=== PATIENT | male | born 1975 | race Caucasian/White ===

== ENCOUNTER 2018-04-24 23:57 | Emergency (ER) | payer OTHER, MEDICAID, SELFPAY ==
[2018-04-25 00:02] VITALS: BP 157/96; PULSE 94; RESP 16; TEMP 36.5; O2SAT 98; BMI 33.7
--- NOTE | 2018-04-25 00:50 | DI.RAD.S_ITS ---
PROCEDURE: XR CHEST 2V INDICATIONS: Shortness of breath, carbon monoxide exposure TECHNIQUE: 2 views of the chest were acquired. COMPARISON: [facility], , CHEST 1 VIEW, 09/27/2016, 2:19. FINDINGS: Surgical changes and devices: None. Lungs and pleura: No pleural effusions or pneumothorax. Lungs are clear. Mediastinum: Mediastinal contours are normal. Heart size is normal. Bones and chest wall: No suspicious bony abnormalities. Soft tissues appear unremarkable. IMPRESSION: No acute cardiopulmonary disease. Dictated by: Celestina Rae M.D. on 04/25/2018 at 8:45 Approved by: Celestina Rae M.D. on 04/25/2018 at 8:46
== END 2018-04-25 01:36 | disposition left against medical advice (07) ==
LOC: ED 04-25
PROVIDERS: Emergency Provider Emergency Medicine; PCP Physician Assistant
DX: Z77.29 Contact with and (suspected) exposure to other hazardous substances (principal)
CPT/HCPCS: 71046; 99281; 99282

== ENCOUNTER → 2018-05-27 08:55 | Outpatient (CLI) | payer OTHER, MEDICAID, SELFPAY ==
[2018-05-27 10:46] LABS: Alanine Aminotransferase 61 IU/L (21-72); Albumin 4.7 g/dL (3.5-5.0); Albumin Globulin Ratio 1.6 (1.0-2.8); Alkaline Phosphatase 71 U/L (38-126); Aspartate Aminotransferase 46 IU/L (17-59); Bilirubin Total 0.9 mg/dL (0.2-1.3); Blood Urea Nitrogen 16 mg/dL (9-20); Calcium 9.2 mg/dL (8.4-10.2); Carbon Dioxide 27 mmol/L (22-32); Chloride 104 mmol/L (98-107); Cholesterol 152 mg/dL (140-199); Estimated Glomerular Filt Rate > 60.0 mL/min (>60); Globulin 2.9 g/dL (1.7-4.1); Glucose 86 mg/dL (70-100); HDL Cholesterol 45 mg/dL (40-60); HEMOLYSIS < 15 (0-50); LDL Cholesterol Calculated 97 mg/dL (<100); Potassium 3.6 mmol/L (3.4-5.1); Sodium 146 mmol/L (137-145); Total Protein 7.6 g/dL (6.3-8.2); Triglycerides 49 mg/dL (35-150)
[2018-05-27 11:10] LABS: Thyroid Stimulating Hormone 1.38 uIU/mL (0.47-4.68)
== END ==
PROVIDERS: PCP Physician Assistant; Visit Provider Physician Assistant
DX: I10 Essential (primary) hypertension (principal)
CPT/HCPCS: 36415; 80053; 80061; 84443

== ENCOUNTER 2018-07-17 07:22 | Day surgery (SDC) | payer OTHER, MEDICAID, SELFPAY ==
[2018-07-17] VITALS (7 sets, daily range): BP systolic 114–145; BP diastolic 69–95; PULSE 67–75; RESP 12–16; TEMP 36.6–36.7; O2SAT 94–98; BMI 33.4
--- NOTE | 2018-07-17 | PATH_ITS ---
[facility] Accession Number: [id number] . 01 Material submitted: . RANDOM BIOPSIES COLON . 02 Diagnosis: Random Colon, Biopsies: Colonic mucosa with no diagnostic abnormality. Negative for active or microscopic colitis. Negative for granulomata, dysplasia or malignancy. V/07/18/2018 . 02 Electronically signed: . Ignacio Fournier MD, PhD, Pathologist NPI- [id number] . 01 Gross description: . Received in one formalin-filled container labeled with the patient's name and labeled random biopsy of colon, are multiple 0.1-0.3 cm portions of tissue, which are filtered, wrapped, and entirely submitted in one cassette. ([id number]) /FRR . 02 Pathologist provided ICD-10: R19.4 . 02 CPT . 026938 Specimen Comment: A duplicate report has been generated due to demographic updates. Performed at: 01 [facility] [address] [place] [address], [place], [place] [id number] MD Chapin Palafox MD Phone: [phone] Performed at: 02 [facility] [address] [place], [place] [id number] MD Merlene Gunn MD Phone: [phone]
--- NOTE | 2018-07-17 07:44 | PM.PREOP ---
Pre-operative Note Interval Note Pre-op Check: Yes History & Physical Reviewed by Physician Changes: No
[2018-07-17] MEDS: LACTATED RINGERS 1,000 ML 21 ML IV (07:49)
--- NOTE | 2018-07-17 08:25 | PM.OP.1 ---
Operative Date/Time/Diagnoses Date of procedure: 07/17/18 Time of procedure: 08:25 Pre-op diagnosis: Abdominal pain Change in bowel habits Family history of ulcerative colitis and multiple polyps as well as colon cancer Post-op diagnosis: same Procedure & Clinicians Procedure: Colonoscopy to the cecum with multiple biopsies Same procedure as scheduled: Yes Indications: No prior colonoscopy Surgeon: Malena Oscar Anesthesia Type: General (Dr. Medrano) Operative Notes Findings: 1. Adequate prep 2. No polyps or mass lesions 3. No AV malformations 4. Minimal diverticulosis limited the sigmoid region 5. Essentially normal appearing mucosa 6. Grade 1 internal hemorrhoids with mild excoriation Closure Type: not applicable Specimen(s): other (1. Random mucosal biopsies throughout the colon, 2. Stool for GI panel) Estimated Blood Loss (mL): 1 Procedure in detail: After obtaining informed consent, the patient was brought to the GI suite and placed in the left lateral decubitus position on the examination table. After placement of appropriate monitors, the patient was given incremental doses of Versed and Fentanyl until an appropriate level of sedation was achieved. A time out was held per SCOAP protocol. A digital rectal examination was performed and did not reveal any masses or obstructing lesions. The colonoscope was gently passed into the patient's anus and the entire colon navigated to the level of the cecum with minimal difficulty. Once in the cecum, the scope was withdrawn being sure to go before and beyond all mucosal folds and prominences and get an excellent examination. The findings are noted above. At the level of the rectal vault, the scope was retroflexed and the internal anal canal was examined. The scope was straightened and air aspirated from the colon. The instrument was removed from the patient's body and the procedure was concluded. The patient was allowed to awaken from sedation without difficulty and taken to the post-anesthesia care unit in good condition. Total withdrawal time was 14 min and 11 sec Complications: none Condition: stable Disposition: PACU Plan for aftercare: 1. Discharge to home 2. We will contact you with pathology results and any additional recommendations. 3. Plan for next colonoscopy at age 51
[2018-07-17 11:06] LABS: Campylobacter Not Detected (Not Detect); Clostridium difficile toxin AB Detected (Not Detect); Enteroaggregative E.coli Not Detected (Not Detect); Enteropathogenic E.coli Not Detected (Not Detect); Enterotoxigenic E.coli It/st Not Detected (Not Detect); Plesiomonsa shigelloides Not Detected (Not Detect); Salmonella Not Detected (Not Detect); Shiga-like toxin-prod E.coli Not Detected (Not Detect); Vibrio Not Detected (Not Detect); Vibrio cholerae Not Detected (Not Detect); Yersinia enterocolitica Not Detected (Not Detect)
[2018-07-17 11:07] LABS: Adenovirus F 40/41 Not Detected (Not Detect); Astrovirus Not Detected (Not Detect); Cryptosporidium Not Detected (Not Detect); Cyclospora cayetanensis Not Detected (Not Detect); Entamoeba histolytica Not Detected (Not Detect); Giardia lamblia Not Detected (Not Detect); Norovirus GI/GII Not Detected (Not Detect); Rotavirus A Not Detected (Not Detect); Sapovirus Not Detected (Not Detect); Shigella/Enteroinvasive E.coli Not Detected (Not Detect)
== END 2018-07-17 09:04 | disposition home or self-care (01) ==
PROVIDERS: PCP Physician Assistant; Visit Provider Surgery
PROC: 0DJD8ZZ Inspection of Lower Intestinal Tract, Via Natural or Artificial Opening Endoscopic (ICD-10-PCS; CPT 45378; principal; 2018-07-17 07:45)
DX: R10.9 Unspecified abdominal pain (principal); R19.4 Change in bowel habit; K57.30 Diverticulosis of large intestine without perforation or abscess without bleeding; K64.0 First degree hemorrhoids; F17.210 Nicotine dependence, cigarettes, uncomplicated; Z80.0 Family history of malignant neoplasm of digestive organs; F41.9 Anxiety disorder, unspecified; J45.909 Unspecified asthma, uncomplicated; I10 Essential (primary) hypertension
CPT/HCPCS: 45380; 87507; 99152; J2704

== ENCOUNTER 2018-08-28 14:58 | Emergency (ER) | payer OTHER, MEDICAID, SELFPAY ==
[2018-08-28 15:18] VITALS: BP 139/88; PULSE 80; RESP 20; TEMP 36.5; O2SAT 99; BMI 33.5
--- NOTE | 2018-08-28 18:26 | PC.NURSE ---
Not in wr when called
--- NOTE | 2018-08-28 19:06 | PC.NURSE ---
Not in WR when called
== END 2018-08-28 19:07 | disposition left against medical advice (07) ==
LOC: ED 15:00
PROVIDERS: PCP Physician Assistant
DX: L02.412 Cutaneous abscess of left axilla (principal)
CPT/HCPCS: 99281; 99282

== ENCOUNTER → 2018-08-30 12:09 | Outpatient (CLI) | payer OTHER, MEDICAID, SELFPAY ==
--- NOTE | 2018-08-30 | DI.US.S_ITS ---
PROCEDURE: US CHEST COMPARISON: None. INDICATIONS: LEFT UNDERARM LUMP; RECENT SQUAMOUS CELL CARCINOMA OF LIP FINDINGS: The study is limited to the chest wall/axilla area in this male patient with a palpable lump identified at the axillary area of the left chest, with history of recent squamous cell carcinoma of the lip. The mass identified measures up to 3.6 x 1.7 x 4.9 cm, is hypoechoic and solid with internal vascularity, with the appearance suggestive of malignancy as the likely cause. Reactive adenopathy is a potential alternative etiology. IMPRESSION: Masslike structure left axilla in a patient with recent diagnosis of head and neck squamous cell carcinoma, worrisome for representing evidence of edgard metastatic disease. Contrast enhanced chest CT scanning is recommended and given the appearance and likelihood of neoplasm staging CT scanning through the abdomen and pelvis at the same time of scanning may be warranted. Dictated by: Charles Escobar M.D. on 08/30/2018 at 14:18 Approved by: Charles Escobar M.D. on 08/30/2018 at 14:20
[2018-08-30 13:52] LABS: Hematocrit 45.8 % (41-53); Mean Corpuscular HGB Conc 34.9 % (30-36); Mean Corpuscular Volume 85.8 fL (80-100); Platelet Count 204 X10^3/uL (150-400); Red Blood Cell Count 5.34 X10^6/uL (4.5-5.9); Red Cell Distribution Width 12.7 % (11.6-14.8); White Blood Cell Count 6.3 X10^3/uL (4.5-11.0)
[2018-08-30 14:11] LABS: Morphology Comment Normal Morphology; Neutrophils Absolute Manual 2457 /uL (3000-5900); Total Cells Counted 100
[2018-08-30 14:46] LABS: Alanine Aminotransferase 52 IU/L (21-72); Albumin 4.4 g/dL (3.5-5.0); Albumin Globulin Ratio 1.3 (1.0-2.8); Alkaline Phosphatase 79 U/L (38-126); Aspartate Aminotransferase 40 IU/L (17-59); BUN Creatinine Ratio 11.7 (6-22); Bilirubin Total 0.4 mg/dL (0.2-1.3); Blood Urea Nitrogen 14 mg/dL (9-20); Calcium 9.8 mg/dL (8.4-10.2); Carbon Dioxide 30 mmol/L (22-32); Chloride 103 mmol/L (98-107); Estimated Glomerular Filt Rate > 60.0 mL/min (>60); Globulin 3.3 g/dL (1.7-4.1); Glucose 81 mg/dL (70-100); HEMOLYSIS < 15 (0-50); Sodium 146 mmol/L (137-145); Total Protein 7.7 g/dL (6.3-8.2)
== END ==
PROVIDERS: PCP Physician Assistant; Visit Provider Physician Assistant
DX: R59.0 Localized enlarged lymph nodes (principal)
CPT/HCPCS: 36415; 76604; 80053; 85025

== ENCOUNTER → 2018-09-09 11:24 | Outpatient (CLI) | payer OTHER, MEDICAID, SELFPAY ==
--- NOTE | 2018-09-09 11:30 | DI.CT.S_ITS ---
PROCEDURE: CT CHEST W CON INDICATIONS: Mass left axilla;hx of SCC of lip TECHNIQUE: After the administration of intravenous contrast, 5 mm thick sections acquired from the pulmonary apices to the posterior costophrenic angles. 7 mm thick coronal and sagittal MIP reformats were acquired. For radiation dose reduction, the following was used: automated exposure control, adjustment of mA and/or kV according to patient size. COMPARISON: [facility], , CHEST, 08/30/2018, 12:36. FINDINGS: Image quality: Excellent. Lungs and pleura: No acute air space opacities. No pleural effusions or pneumothorax. Central and peripheral airways are patent and normal in caliber. Mediastinum: Heart size is normal. No pericardial effusion. Mildly prominent, measures up to 9 x 8 16 mm in size in the precarinal space. No gross hilar lymphadenopathy. lymph nodes are seen scattered in mediastinum Thoracic aorta and central pulmonary arteries are normal in size. Esophagus is normal in caliber. There is a small hiatal hernia. Bones and chest wall: No suspicious bony lesions. No vertebral body compression fractures. Thyroid gland is within normal limits. Prominent left axillary lymph nodes are seen with soft tissue density mass measures 4.1 x 2.3 x 4.2 cm in size. This was also noted on previous ultrasound examination. No right axillary adenopathy. No supraclavicular lymphadenopathy. Abdomen: Visualized upper abdominal solid organs appear normal. Upper abdominal bowel loops are normal in caliber. IMPRESSION: 1. Prominent lymph nodes and a 4.1 x 2.3 x 4.2 cm soft tissue density lesion in left axilla which could represent malignant mass versus metastatic lymphadenopathy given patient's history of head and neck cancer. 2. Borderline enlarged mediastinal lymph nodes as above. No hilar adenopathy. 3. Bilateral lungs are clear. Airway is patent. Dictated by: Terry Ureña M.D. on 09/09/2018 at 13:40 Approved by: Terry Ureña M.D. on 09/09/2018 at 13:50
== END ==
PROVIDERS: Family Provider Surgery; PCP Physician Assistant; Visit Provider Physician Assistant
DX: R22.32 Localized swelling, mass and lump, left upper limb (principal); R59.0 Localized enlarged lymph nodes; Z85.819 Personal history of malignant neoplasm of unspecified site of lip, oral cavity, and pharynx
CPT/HCPCS: 71260; Q9967

== ENCOUNTER → 2018-09-10 11:35 | Outpatient (CLI) | payer OTHER, MEDICAID, SELFPAY ==
--- NOTE | 2018-09-10 11:58 | DI.CT.S_ITS ---
PROCEDURE: CT ABDOMEN PELVIS W CON INDICATIONS: Axillary adenopathy with history of head and neck cancer TECHNIQUE: After the administration of oral and intravenous contrast, 5 mm thick sections acquired from the diaphragms to the symphysis. 5 mm thick coronal and sagittal reformats were performed. For radiation dose reduction, the following was used: automated exposure control, adjustment of mA and/or kV according to patient size. COMPARISON: [facility], CT, CT CHEST W CON, 09/09/2018, 11:22. FINDINGS: Image quality: Excellent. ABDOMEN: Lung bases: There is mild dependent atelectasis. Heart size is at the upper limits of normal. Solid organs: There is mild hypoattenuation of the liver consistent with fatty infiltration with relative sparing along the gallbladder fossa. The gallbladder appears within normal limits without calcified gallstones. Biliary system is non-dilated. Pancreas enhances normally. Spleen is enlarged, measuring up to 16 cm. No adrenal nodules. Kidneys are normal in size and enhancement, without hydronephrosis. Peritoneum and bowel: Stomach, small bowel, and colon loops are normal in caliber and wall thickness. The appendix is normal in appearance. There is colonic diverticulosis without acute diverticulitis. No free fluid or air. Nodes and vessels: There are multiple mildly enlarged mesenteric lymph nodes measuring up to 1.1 cm in short axis with mild hazy fat stranding of the mesentery. No associated calcification. Aorta and inferior vena cava are normal in caliber. Miscellaneous: No ventral hernias. PELVIS: Genitourinary: Bladder wall thickness is normal. There is heterogeneous enlargement of the prostate. Areas of ill-defined hypodensity in the peripheral zone bilaterally may be associated with blood products from prior prostate biopsy. Miscellaneous: No inguinal hernias or adenopathy. Bones: No suspicious bony lesions. No vertebral body compression fractures. IMPRESSION: 1. Mildly enlarged mesenteric lymph nodes with mild hazy fat stranding in the mesentery. The findings are nonspecific and may reflect sequelae of treated lymphoma versus an inflammatory process such as sclerosing mesenteritis. 2. Nonspecific splenomegaly. 3. Mild hepatic steatosis. 4. Heterogeneous enlargement of the prostate with ill-defined areas of hyperdensity in the peripheral zone which may reflect blood product from prior prostate biopsy. Recommend correlation with clinical history. Dictated by: Chapin Sneed M.D. on 09/10/2018 at 16:58 Approved by: Chapin Sneed M.D. on 09/10/2018 at 17:03
== END ==
PROVIDERS: Family Provider Surgery; PCP Physician Assistant; Visit Provider Surgery
DX: R59.0 Localized enlarged lymph nodes (principal); R16.1 Splenomegaly, not elsewhere classified; K76.0 Fatty (change of) liver, not elsewhere classified; N40.0 Benign prostatic hyperplasia without lower urinary tract symptoms; Z85.89 Personal history of malignant neoplasm of other organs and systems
CPT/HCPCS: 74177; Q9967

== ENCOUNTER 2018-09-18 10:47 | Day surgery (SDC) | payer OTHER, MEDICAID, SELFPAY ==
[2018-09-16 12:31] VITALS: BMI 33.7
[2018-09-18] VITALS (17 sets, daily range): BP systolic 115–147; BP diastolic 77–103; PULSE 50–84; RESP 10–16; TEMP 36.1–36.8; O2SAT 94–99; BMI 33.7
--- NOTE | 2018-09-18 | PATH_ITS ---
Note [facility] Accession Number: [id number] TESTS RESULT FLAG UNITS REF RANGE LAB Flow Interpretation 01 Comment Left axillary lymph node, biopsy: No abnormal B-cell or T-cell population identified (see Comments) 01 Comment No evidence of B-cell or T-cell non-Hodgkin lymphoma is identified by flow cytometry. A subset of the B-cells expresses slightly higher-level CD20 and FMC7 than the rest of the mature B-cells, with coexpression of low CD10, high CD38, and polytypic surface light chains. This low-level CD10+ B-cell population is favored to represent reactive follicle center B-cells; however, correlation with the concurrent paraffin-embedded tissue will be required. Note that Hodgkin lymphoma, certain non-Hodgkin lymphomas (e.g. T-cell/histiocyte-rich large B-cell lymphoma), and a non-hematopoietic neoplasm would not be detected by these flow cytometry studies. Therefore, correlation with the concurrent left axillary lymph node tissue morphology is required for definitive diagnosis ([id number]). - Flow cytometric analysis indicates that the viable leukocytes are comprised of 98% lymphocytes and 0.8% granulocytes. The lymphocytes include 50% B-cells, 48% T-cells, and 0.6% NK-cells. The mature B-cells have a normal kappa:lambda ratio of 1.6 overall; and the subset of B-cells with slightly higher-level CD20 and low-level CD10 expression has a normal kappa:lambda ratio of 2.0. The T-cells have a normal CD4:CD8 ratio of 3.9. 01 Comment [id number] 01 Comment Left axillary lymph node 01 Comment Cell Yield: 2,222 x 10E3/mm3 Analysis of the viable cells reveals: 98% lymphocytes, 49% B-cells, 47% T-cells, 0.6% NK-cells, and 0.8% granulocytes 64% 01 01 Comment Nguyen Hoyt MD - [facility] [place] [address] [facility]-[id number] Comment: 01 Comment The following antigens were evaluated: CD2, CD3, CD4, CD5, CD7, CD8, CD10, CD11b, CD11c, CD13, CD14, CD15, CD16, CD19, CD20, CD22, CD23, CD33, CD34, CD38, CD45, CD56, CD57, CD64, CD103, CD117, FMC-7, HLA-DR, [place], Lambda. This laboratory is licensed under the Clinical Laboratory Improvement Amendments of 1988 (CLIA) as qualified to perform high complexity testing. Each antibody in this assay was utilized to assess for potential abnormalities of studied cell populations or to characterize identified abnormalities. . This test was developed and its performance characteristics determined by [employer]. It has not been cleared or approved by the U.S. Food and Drug Administration. . The FDA has determined that such clearance or approval is not necessary. This test is used for clinical purposes. It should not be regarded as investigational or for research. FLAG LEGEND: L-Low Normal,H-High Normal,LL-Alert Low,HH-Alert High <-Panic Low,>-Panic High,A-Abnormal,AA-Critical Abnormal Performed at: 01 [facility]$ [facility] [address] [address] Julissa Davenport MD, Specimen Comment: A duplicate report has been generated due to demographic updates. Performed at: [address] [address] [id number] MD Julissa Davenport MD Phone: [phone]
[2018-09-18] MEDS: LACTATED RINGERS 1,000 ML 42 ML IV (11:44)
--- NOTE | 2018-09-18 11:54 | PM.PREOP ---
Pre-operative Note Interval Note History & Physical reviewed/Exam performed by Physician: Yes Changes to H&P: No
[2018-09-18] MEDS: CEFAZOLIN 2 GM/100 ML FROZ.PIGGY IV (12:22)
--- NOTE | 2018-09-18 12:36 | SUR.OPER ---
Supine on padded OR bed, head on pillow, arms secured on padded arm boards at <90 degrees abduction, legs uncrossed, safety belt at thigh, tape over blanket over lower legs.
[2018-09-18] MEDS: LIDOCAINE 1% W/EPI INJ 20 ML INJ (12:47)
[2018-09-18] MEDS: BUPIVACAINE 0.5% (PF) VIAL 30 ML INJ (12:48)
--- NOTE | 2018-09-18 13:06 | PM.OP.1 ---
Operative Date/Time/Diagnoses Date of procedure: 09/18/18 Time of procedure: 13:06 Pre-op diagnosis: Left axillary mass Post-op diagnosis: same Procedure & Clinicians Procedure: Excision of enlarged left axillary lymph node Same procedure as scheduled: Yes Indications: Grossly abnormal left axillary lymph node Surgeon: Malena Oscar Click Yes if Unassisted: Yes Anesthesia Type: General (Dr. Medrano) and Local Operative Notes Findings: 6 x 5 cm mass consistent with an abnormal lymph node. It is riojas in color with black specks spread throughout Closure Type: primary Specimen(s): other (Lymph node divided into 4 sections and submitted for lymph node protocol) Estimated Blood Loss (mL): 5 Procedure in detail: After obtaining informed consent, the patient brought to the operating room and placed in the supine position on the operating table. Following successful induction of general endotracheal anesthesia, appropriate padding of all bony prominences, and placement of appropriate monitors, the left axilla was prepped and draped in the standard surgical fashion. A time-out was held per SCOAP protocol. Following infiltration with local anesthetic to create a field block, an incision was created directly over the palpable node in the left axilla. The node was then carefully liberated from surrounding structures. All afferent and efferent vasculature and lymphatics were addressed with hemoclips prior to division. Once the node was freed, it was divided into 4 segments. Two were sent for flow cytometry, 1 placed in formalin, and the other 1 for culture. Touch preps were also performed. The wound was then checked for hemostasis. It was irrigated with warm saline solution and additional local anesthetic applied. It was then closed in 2 layers with Vicryl and Monocryl suture. All sponge, needle, and instrument counts were correct at the conclusion of the case. The patient was allowed to wake from anesthesia without difficulty and taken to the postanesthesia care unit in good condition. Complications: none Condition: stable Disposition: PACU Plan for aftercare: 1. Discharge to home 2. Follow up with me in 2 weeks
[2018-09-18] MEDS: fentaNYL 100 MCG/2 ML INJ 25 MCG IV ×3 (13:29→13:40)
[2018-09-18] MEDS: LORazepam 2 MG/ML SYRINGE 0.5 MG IV (14:16)
--- NOTE | 2018-09-18 14:22 | SUR.PHASEI ---
PT BECAME VERY DIAPHORETIC AND C/O BEING SUPER HOT, BECAME ANXIOUS AND NAUSEATED, COOL CLOTH TO FOREHEAD, COMFORT MEASURES AND REASSURANCE GIVEN, BLOOD SUGAR CHECK = 86, MEDICATED FOR ANXIOUS FEELING.
--- NOTE | 2018-09-18 14:27 | SUR.PHASEI ---
PT APPEARS MORE COMFORTABLE, IS SLEEPING QUIETLY.
[2018-09-18] MEDS: OXYCODONE/ACETAMINOPHEN 5/325 TABLET 1 TAB PO (14:53)
== END 2018-09-18 15:33 | disposition home or self-care (01) ==
PROVIDERS: Family Provider Surgery; PCP Physician Assistant; Visit Provider Surgery
PROC: (CPT 38500; principal; 2018-09-18 11:45)
DX: R22.2 Localized swelling, mass and lump, trunk (principal); Z85.828 Personal history of other malignant neoplasm of skin; F41.9 Anxiety disorder, unspecified; F33.41 Major depressive disorder, recurrent, in partial remission; I10 Essential (primary) hypertension; F43.10 Post-traumatic stress disorder, unspecified; F17.210 Nicotine dependence, cigarettes, uncomplicated
CPT/HCPCS: 38500; 88305; 88307; 88312; 88341; 88342; 88365; J0690; J2060; J2250; J2405; J2704; J3010

== ENCOUNTER → 2018-10-08 12:07 | Outpatient (CLI) | payer OTHER, MEDICAID, SELFPAY ==
[2018-10-08 15:55] LABS: Microalbumi Creatinin Ratio Ur 4.8 ug/mg CR (<30); Microalbumin Urine Random < 0.6 mg/dL (0-1.6)
== END ==
PROVIDERS: Family Provider Surgery; PCP Physician Assistant; Visit Provider Physician Assistant
DX: B58.9 Toxoplasmosis, unspecified (principal); R53.83 Other fatigue; R59.0 Localized enlarged lymph nodes; R61 Generalized hyperhidrosis; I10 Essential (primary) hypertension
CPT/HCPCS: 36415; 82043; 82570; 86778

== ENCOUNTER 2019-06-16 12:08 | Day surgery (SDC) | payer OTHER, MEDICAID, SELFPAY ==
[2019-06-16] VITALS (8 sets, daily range): BP systolic 111–149; BP diastolic 69–99; PULSE 74–85; RESP 13–18; TEMP 36.1–37.1; O2SAT 92–97; BMI 33.0
--- NOTE | 2019-06-16 | PATH_ITS ---
[facility] Accession Number: [id number] . 01 Material submitted: . body - PILONIDAL CYST TRACT . 01 Diagnosis: Skin and Subcutis, Pilonidal Cyst, Excision: Inflammatory changes consistent with pilonidal sinus. MRV 06/19/2019 1833 Local . 01 Electronically signed: . Julissa Davenport MD, Pathologist NPI- [id number] . 01 Gross description: . Received in formalin, labeled pilonidal cyst tract, is an unoriented 10.0 x 2.8 x 1.8 cm piece of santos-white smooth and shiny skin containing a perforation (0.7 x 0.3 cm) which is connected to a cystic tract that runs along the underlying tissue of the entire specimen. The tract contains matted strands of hair. The resection margin is inked blue. Digital Composer serial sections are submitted in cassettes A1 and A2. ([id number]) /[facility] 06/18/2019 1655 Local . 01 Pathologist provided ICD-10: L05.01 . 01 CPT . 499226 Performed at: [address] [facility] [id number] MD Chapin Palafox MD Phone: [phone]
[2019-06-16] MEDS: LACTATED RINGERS 1,000 ML 42 ML IV (12:45)
--- NOTE | 2019-06-16 14:02 | PM.HP.1 ---
History of Present Illness History of Present Illness Date Patient Seen: 06/16/19 Time Patient Seen: 14:02 Chief complaint: 11691 Narrative: Patient is a gentleman with a chronic draining pilonidal cyst here for surgical treatment Patient History Medical History Anxiety (Chronic Unknown) Asthma (Chronic Unknown) Depression (Chronic Unknown) Hx of hydrocele (Resolved ~1979) Hypertension (Chronic Unknown) PTSD (post-traumatic stress disorder) (Chronic Unknown) Substance abuse (Resolved ~2013) Surgical History History of colonoscopy (Acute) Hx of hernia repair (Resolved ~1979) Family History Father Schizophrenia Mother Age: 59 Mental health disorder Hypertension Ovarian cancer Grandmother Cancer Hypertension Social History household members: significant other and children Smoking Status: Former smoker (I quit 5 days ago (10/03/18)) Tobacco: How many years used: 22 quit status: considering quitting second hand exposure: No alcohol intake: former substance use type: does not use Family & Social History Family History Father Schizophrenia Mother Age: 59 Mental health disorder Hypertension Ovarian cancer Grandmother Cancer Hypertension Social History: household members significant other,children Tobacco & Substance use: Smoking Status Former smoker alcohol intake former alcohol intake frequency 0-2 drinks per day Substance Use Type does not use Meds Home Medications and Allergies Home Medications Medication Instructions Recorded Confirmed Type ibuprofen 800 mg tablet 800 mg PO TID PRN #30 tab 03/12/19 05/07/19 Rx lisinopril 20 1 tab PO DAILY #60 tab 04/09/19 05/07/19 Rx mg-hydrochlorothiazide 12.5 mg tablet clonazepam 1 mg tablet 1 mg PO TID PRN #60 tab 05/06/19 05/07/19 Rx Allergies Allergy/AdvReac Type Severity Reaction Status Date / Time No Known Drug Allergies Allergy Verified 05/07/19 11:17 Review of Systems Review of Systems ROS Unobtainable: All systems reviewed & are unremarkable except as noted in HPI and below Exam Vital Signs (past 8 hours): - 06/16/19 12:19 Temperature 98.7 F Pulse Rate 85 Respiratory Rate 15 Blood Pressure 146/98 H Pulse Oximetry 97 Oxygen Delivery Method Room Air Narrative Exam Narrative: Pleasant cooperative patient no apparent distress. Lungs are clear to auscultation. No rales or rhonchi. Heart regular rate and rhythm no murmur gallop. Abdomen is soft nontender without mass. No obvious hernias. Patient is alert and oriented x3. Extensively tattooed. Has a sinus tract to the right of his coccyx and additional ones in the cleft of his buttocks. No cellulitis. Assessment & Plan Assessment & Plan narrative: Pilonidal cyst chronic. Plan to excise into a tissue transfer. I have discussed the procedure with him. Risks of bleeding infection recurrence. Appears to understand. Will have a drain.
--- NOTE | 2019-06-16 14:07 | PM.PREOP ---
Pre-operative Note Interval Note History & Physical reviewed/Exam performed by Physician: Yes Changes to H&P: No H&P completed within 30 days and has changed as indicated here:: A Vicodin does not work very well for him.
[2019-06-16] MEDS: CEFAZOLIN 2 GM/100 ML FROZ.PIGGY IV (14:30)
[2019-06-16] MEDS: CLINDAMYCIN 600 MG/50 ML PIGGYBACK 100 MG IV (14:40)
--- NOTE | 2019-06-16 15:03 | SUR.OPER ---
Prone on padded OR bed, head in foam head support, gel chest rolls, gel pad under knees, pillow under lower legs, toes free of pressure, arms secured on padded arm boards at <90 degrees abduction. Safety belt at thigh.
[2019-06-16] MEDS: BUPIVACAINE 0.5% W/ EPI (PF) VIAL 30 ML INJ (15:29)
--- NOTE | 2019-06-16 16:11 | SUR.OPER ---
IV FELL OUT WHEN ROLLING BACK TO SUPINE POSITION, NEW 20 GA. ANGIO STARTED IN RIGHT HAND WITH ALCOHOL PREP.
--- NOTE | 2019-06-16 16:27 | PM.OP.1 ---
Operative Date/Time/Diagnoses Date of procedure: 06/16/19 Time of procedure: 16:09 Pre-op diagnosis: Chronic pilonidal cyst with drainage and sinus tracts Post-op diagnosis: same Procedure & Clinicians Procedure: Excision with rotation of tissues Same procedure as scheduled: Yes Indications: Chronic pilonidal cyst disease Surgeon: Memo Crystal Click Yes if Unassisted: Yes Anesthesia Type: General Operative Notes Findings: Chronic tract. The entire cyst was excised without entering it. Closure Type: primary Specimen(s): other (Pilonidal cyst cavity) Applied: drain(s) (Nineteen Vietnamese Ezra drain) Estimated Blood Loss (mL): 30 Blood products transfused: none Procedure in detail: The patient was placed supine on his bed and underwent general endotracheal anesthesia. He was placed in helen-knife prone and prepped and draped in the usual fashion. Elliptical incision was made around the chronic cyst cavity. It was placed to the right of midline as that was the location of the sinus tract. Ellipse of skin and subcu fat was removed and the tissue removed down to the coccyx. He is rather muscular and so there was not a great deal of subcu fat and I literally took the cavity off of muscle wall fascia. The specimen was removed and hemostasis was achieved. I incised the subcu fat on the patient's left about a cm and a half below skin surface to allow it to mobilize the skin. The tape was then taken off the buttock so that the tissues could come together without tension. A drain was placed through a separate stab incision above the incision near the midline. It was placed in the cavity in the cavity closed over it with interrupted to the subcu was closed with interrupted 3 0 Vicryl sutures and the skin was closed with a running 2-0 Prolene running subcuticular stitch. Dressing was applied and the patient was placed back on his bed awakened, extubated and taken recovery area in good condition. Complications: none Post-operative Condition: stable Disposition: PACU
--- NOTE | 2019-06-16 16:36 | SUR.PHASEI ---
sleeping, arouses to irritation of oxygen blow-by, but continues sleeping. resp even and regular, skin warm and dry. buttocks dressing CDI; pt lying on left side for position of comfort.
--- NOTE | 2019-06-16 16:46 | SUR.PHASEI ---
awake, dr. avendano spoke with patient. denies pain/nausea. water given. Pt. polite and cooperative.
== END 2019-06-16 17:30 | disposition home or self-care (01) ==
PROVIDERS: Family Provider Surgery; PCP Physician Assistant; Visit Provider Specialist
PROC: (CPT 11772; principal; 2019-06-16 13:15)
DX: L05.01 Pilonidal cyst with abscess (principal); I10 Essential (primary) hypertension; F41.9 Anxiety disorder, unspecified; J45.909 Unspecified asthma, uncomplicated; F32.9 Major depressive disorder, single episode, unspecified
CPT/HCPCS: 11772; 87070; 87075; 87077; 87186; 87205; J0330; J0690; J1100; J1170; J2250; J2405; J2704; J3010

== ENCOUNTER 2019-07-18 10:32 | Emergency (ER) | payer OTHER, MEDICAID, SELFPAY ==
[2019-07-18 10:38] VITALS: BP 148/82; PULSE 74; RESP 14; TEMP 36.9; O2SAT 97; BMI 33.7
--- NOTE | 2019-07-18 10:53 | DI.CT.S_ITS ---
PROCEDURE: CT HEAD/BRAIN WO CON INDICATIONS: headache, neurologic changes, vision TECHNIQUE: Noncontrast 4.5 mm thick angled axial sections acquired from the foramen magnum to the vertex, with coronal and sagittal reformats. For radiation dose reduction, the following was used: automated exposure control, adjustment of mA and/or kV according to patient size. COMPARISON: None. FINDINGS: Image quality: Excellent. CSF spaces: Basal cisterns are patent. No extra-axial fluid collections. Ventricles are normal in size and shape. Brain: No midline shift. No intracranial masses or hemorrhage. Epstein-white matter interface is normal. Skull and face: Calvarium and visualized facial bones are intact, without suspicious lesions. Sinuses: Visualized sinuses and mastoids are clear. IMPRESSION: No acute intracranial process is seen. No acute intracranial hemorrhage is seen. No masses or mass effect can be seen. No constantin brain edema is seen. If it would be helpful for clinical management decision making, please consider a dedicated brain MRI for further evaluation (assuming that there is no contraindication). Dictated by: Jean-Paul Laboy M.D. on 07/18/2019 at 10:24 Approved by: Jean-Paul Laboy M.D. on 07/18/2019 at 10:25
--- NOTE | 2019-07-18 11:01 | ED_ITS ---
HPI - Headache General Chief Complaint: Headache Stated Complaint: blood pressure high and thinking a stroke Time Seen by Provider: 07/18/19 10:35 Source: patient Mode of arrival: Ambulatory Limitations: no limitations History of Present Illness HPI Narrative: 43-year-old former smoker presents with some headache and an episode of blurred vision that resolved prior to his arrival. He took his blood pressure as an outpatient found to be in the 140s which is very high for him, he is concerned that he is having a stroke. He has no ongoing symptoms. He denies any focal neurologic symptoms such as numbness, tingling or weakness. He denies any recent injury nor neck pain. His symptoms started yesterday and resolved prior to arrival MD Complaint: headache Onset description: now resolved Location: frontal Severity: moderate Quality: aching Relieving factors: nothing Exacerbating factors: none Context: occurred at rest Associated symptoms: none Treatments prior to arrival: none Related Data Previous Rx's Medication Instructions Recorded ibuprofen 800 mg tablet 800 mg PO TID PRN #30 tab 03/12/19 lisinopril 20 1 tab PO DAILY #60 tab 04/09/19 mg-hydrochlorothiazide 12.5 mg tablet clonazepam 1 mg tablet 1 mg PO TID PRN #60 tab 05/06/19 gabapentin 300 mg PO BID #20 cap 06/16/19 oxycodone-acetaminophen [Percocet] See Rx Instructions .ROUTE 06/16/19 .COMPLEX PRN #30 tab amoxicillin 875 mg-potassium 1 tab PO BID #14 tab 06/17/19 clavulanate 125 mg tablet clindamycin HCl 300 mg capsule 300 mg PO TID #15 cap 06/21/19 Allergies Allergy/AdvReac Type Severity Reaction Status Date / Time No Known Drug Allergies Allergy Verified 07/03/19 14:52 Review of Systems Constitutional Constitutional: Denies chills, Denies fatigue, Denies fever(s), Denies frequent falls, Denies lethargy and Denies weakness Eyes Eyes: Denies change in vision, Denies eye discharge, Denies irritation and De nies loss of vision ENT Ears, Nose, Mouth, and Throat: Denies change in voice, Denies dizziness, Denies neck pain, Denies sore throat and Denies throat swelling Cardiovascular Cardiovascular: Denies chest pain, Denies irregular heart rhythm, Denies lightheadedness, Denies palpitations, Denies dyspnea, Denies dyspnea on exertion and Denies orthopnea Respiratory Respiratory: Denies cough, Denies dyspnea, Denies dyspnea on exertion and Denies wheezing Gastrointestinal Gastrointestinal: Denies abdominal pain, Denies change in bowel habits, Denies diarrhea, Denies nausea and Denies vomiting Genitourinary Genitourinary: Denies hematuria, Denies flank pain, Denies urinary incontinence and Denies urinary urgency Musculoskeletal Musculoskeletal: Denies back pain, Denies muscle weakness, Denies neck pain, Rep orts numbness and Reports tingling Integumentary/Breasts Skin/Breast: Denies pruritus, Denies erythema, Denies rash and Denies wounds Neurologic Neurologic: Denies behavioral changes, Denies confusion, Denies dizziness, Denies frequent falls, Denies loss of vision, Reports numbness, Reports tingling and Denies weakness Psychiatric Psychiatric: Denies anxiety, Denies behavioral changes, Denies confusion, Denies depression, Denies homicidal ideation and Denies suicidal ideation Endocrine Endocrine: Denies fatigue, Denies flushing and Denies palpitations Hematologic/Lymphatic Hematologic/Lymphatic: Denies easy bruising Allergic/Immunologic Allergic/Immunologic: Denies urticaria, Denies throat swelling and Denies wheezing Patient History Medical History Anxiety (Chronic Unknown) Asthma (Chronic Unknown) Depression (Chronic Unknown) Hx of hydrocele (Resolved ~1979) Hypertension (Chronic Unknown) PTSD (post-traumatic stress disorder) (Chronic Unknown) Substance abuse (Resolved ~2013) Surgical History History of colonoscopy (Acute) Hx of hernia repair (Resolved ~1979) Family History Father Schizophrenia Mother Age: 59 Mental health disorder Hypertension Ovarian cancer Grandmother Cancer Hypertension Social History household members: significant other and children Smoking Status: Former smoker Tobacco: How many years used: 22 quit status: considering quitting second hand exposure: No alcohol intake: former substance use type: does not use alcohol intake frequency: 0-2 drinks per day Substance Use Type: does not use Exam Narrative Exam Narrative: GENERAL: [43] year old patient appears stated age. Well- nourished, well-developed patient, in mild distress. HEAD: Atraumatic. Normocephalic. EYES: Pupils equal round and reactive. Extraocular motions intact. No scleral icterus. No injection or drainage. ENT: Nose without bleeding, purulent drainage. Throat without erythema, tonsillar hypertrophy or exudate. Airway patent. NECK: Trachea midline. Non tender CARDIOVASCULAR: Regular rate and rhythm without murmurs, gallops, or rubs. RESPIRATORY: Clear to auscultation. Breath sounds equal bilaterally. No wheezes, rales, or rhonchi. GASTROINTESTINAL: Abdomen soft, non-tender, nondistended. EXTREMITIES: No edema or joint tenderness. BACK: Nontender without deformity or crepitance. No flank tenderness. NEURO: AOx3. SKIN: No rash or erythema of visible areas NIH Stroke Scale 1a. LOC: Patient is alert and keenly responsive (0) 1b. LOC Questions: Patient answers both LOC questions accurately (0) 1c. LOC Commands: Patient performs both tasks correctly (0) 2. Best Gaze: Normal (0) 3. Visual: No visual loss (0) 4. Facial palsy: Normal symmetrical movements (0) 5. Motor arm: No drift (0) 6. Motor leg: No drift (0) 7. Limb ataxia: Absent (0) 8. Sensory: Normal (0) 9. Best language: No aphasia; normal (0) 10. Dysarthria: Normal (0) 11. Extinction and inattention: No abnormality (0) NIHSS: 0 Initial Vital Signs Initial Vital Signs: Vital Signs Temperature 98.4 F 07/18/19 10:38 Pulse Rate 74 07/18/19 10:38 Respiratory Rate 14 07/18/19 10:38 Blood Pressure 148/82 H 07/18/19 10:38 Pulse Oximetry 97 07/18/19 10:38 Course Orders Ordered: ED Orders 07/18/19 10:46 EKG-12 Lead Routine 07/18/19 10:53 CT head/brain wo con Stat 07/18/19 11:20 Basic Metabolic Panel Stat C-Reactive Protein Quant Stat Complete Blood Count AUTO DIFF Stat Erythrocyte Sedimentation Rate Stat Vital Signs Vital signs: Vital Signs - 8 hr 07/18/19 11:16 07/18/19 13:10 Pulse Rate 67 55 L Respiratory Rate 21 14 Blood Pressure [Right Arm] 112/81 109/66 Pulse Oximetry 95 94 MDM - Headache Lab Data Result diagrams: 07/18/19 11:20 07/18/19 11:20 Labs: Lab Results 07/18/19 07/18/19 Range/Units 11:20 11:20 WBC 5.7 (4.5-11.0) X10^3/uL RBC 5.14 (4.5-5.9) X10^6/uL Hgb 15.5 (13.5-17.5) g/dL Hct 44.9 (41-53) % MCV 87.2 (80-100) fL MCH 30.1 (26-34) PG MCHC 34.5 (30-36) % RDW 13.0 (11.6-14.8) % Plt Count 173 (150-400) X10^3/uL Neut % (Auto) 47.9 L (50-75) % Lymph % (Auto) 35.7 (25-40) % [place] % (Auto) 13.1 (3-14) % Eos % (Auto) 2.3 (2-4) % Baso % (Auto) 1.0 (0-2) % Neut # (Auto) 2700 (6872-9179) /uL Lymph # (Auto) 2000 (8943-3027) /uL [place] # (Auto) 700 (0-900) /uL Eos # (Auto) 100 (0-450) /uL Baso # (Auto) 100 (0-100) /uL ESR 3 (0-15) MM/HR Sodium 141 (137-145) mmol/L Potassium 4.0 (3.4-5.1) mmol/L Chloride 105 (98-107) mmol/L Carbon Dioxide 27 (22-32) mmol/L BUN 14 (9-20) mg/dL Creatinine 0.90 (0.66-1.25) mg/dL Estimated GFR > 60.0 (>60) mL/min BUN/Creatinine Ratio 15.6 (6-22) Glucose 99 (70-100) mg/dL Calcium 9.9 (8.4-10.2) mg/dL C-Reactive Protein < 0.5 (<1.0) mg/dL MDM Narrative Medical decision making narrative: Multiple etiologies for patient's symptoms considered including: [Hypertension versus stroke versus anxiety versus other] Patient's symptoms improved or duration of stay with above-stated therapies. Findings and discharge diagnosis discussed with patient/family followed by verbalization of understanding Return precautions discussed with patient/family whom verbalize understanding. Discharge Plan Departure Patient Disposition: Home Clinical Impression: Headache Qualifiers: Headache type: unspecified Headache chronicity pattern: acute headache Intractability: not intractable Qualified Code(s): R51 - Headache Discharge Date/Time: 07/18/19 13:35 Instructions: DI for Headache, DI for Visual Field Disturbances Activity Restrictions/Additional Instructions: *You have been diagnosed with [visual old disturbances, possible atypical migraine] *What to do: *Take medications as directed *Follow up with your primary care provider in 2-3 days, call for an appointment. Let them know you were seen in the Emergency Department and that we ask that you be seen in follow up *Return to ER if you should have any new, worsening or concerning symptoms Prescriptions: No Action ibuprofen 800 mg tablet 800 mg PO TID PRN (Reason: pain) Qty: 30 RF: 1 amoxicillin-pot clavulanate [Augmentin] 875-125 mg tablet 1 tab PO BID Qty: 14 RF: 0 lisinopril-hydrochlorothiazide 20-12.5 mg tablet 1 tab PO DAILY Qty: 60 RF: 6 clonazepam 1 mg tablet 1 mg PO TID PRN (Reason: anxiety) Qty: 60 RF: 3 clindamycin HCl [Cleocin HCl] 300 mg capsule 300 mg PO TID Qty: 15 RF: 0 oxycodone-acetaminophen [Percocet] 5-325 mg tablet See Rx Instructions .ROUTE .COMPLEX PRN (Reason: painful procedure) Qty: 30 RF: 0 gabapentin 300 mg capsule 300 mg PO BID Qty: 20 RF: 0 Referrals: Jazmin Dale PA-C [Primary Care Provider] -
[2019-07-18 11:16] VITALS: BP 112/81; PULSE 67; RESP 21; O2SAT 95
[2019-07-18 11:31] LABS: Add Manual Diff / Slide Review NO; Basophils Absolute Auto 100 /uL (0-100); Eosinophils Absolute Auto 100 /uL (0-450); Eosinophils Percent Auto 2.3 % (2-4); Hematocrit 44.9 % (41-53); Hemoglobin 15.5 g/dL (13.5-17.5); Lymphocytes Absolute Auto 2000 /uL (1100-4500); Lymphocytes Percent Auto 35.7 % (25-40); Mean Corpuscular HGB Conc 34.5 % (30-36); Mean Corpuscular Hemoglobin 30.1 PG (26-34); Mean Corpuscular Volume 87.2 fL (80-100); Monocytes Absolute Auto 700 /uL (0-900); Monocytes Percent Auto 13.1 % (3-14); Neutrophils Absolute Auto 2700 /uL (1500-7000); Neutrophils Percent Auto 47.9 % (50-75); Platelet Count 173 X10^3/uL (150-400); Red Blood Cell Count 5.14 X10^6/uL (4.5-5.9); White Blood Cell Count 5.7 X10^3/uL (4.5-11.0)
[2019-07-18 11:52] LABS: BUN Creatinine Ratio 15.6 (6-22); Blood Urea Nitrogen 14 mg/dL (9-20); Calcium 9.9 mg/dL (8.4-10.2); Carbon Dioxide 27 mmol/L (22-32); Chloride 105 mmol/L (98-107); Estimated Glomerular Filt Rate > 60.0 mL/min (>60); Glucose 99 mg/dL (70-100); HEMOLYSIS 18 (0-50); Sodium 141 mmol/L (137-145)
[2019-07-18 11:53] LABS: C-Reactive Protein Quant < 0.5 mg/dL (<1.0)
[2019-07-18 12:30] LABS: Erythrocyte Sedimentation Rate 3 MM/HR (0-15)
[2019-07-18 13:10] VITALS: BP 109/66; PULSE 55; RESP 14; O2SAT 94
== END 2019-07-18 13:35 | disposition home or self-care (01) ==
PROVIDERS: Emergency Provider Emergency Medicine; Family Provider Surgery; PCP Physician Assistant
DX: R51 Headache (principal)
CPT/HCPCS: 36415; 70450; 80048; 85025; 85651; 86140; 93005; 99282; 99285

== ENCOUNTER → 2020-07-19 10:12 | Outpatient (CLI) | payer OTHER, MEDICAID, SELFPAY ==
[2020-07-19 12:22] LABS: COVID19 -Nasal RAPID Negative (Negative)
== END ==
PROVIDERS: Family Provider Surgery; PCP Family Medicine; Visit Provider Physician Assistant
DX: Z11.59 Encounter for screening for other viral diseases (principal)
CPT/HCPCS: 87635